=== PATIENT | female | born 1960 | race American Indian/Alaskan Native ===

== ENCOUNTER 2019-09-18 23:58 | Emergency (ER) | payer SELFPAY ==
[2019-09-19 00:59] LABS: Hematocrit 41.8 % (30.3-42.9); Hemoglobin 13.7 gm/dl (10.1-14.3); Mean Corpuscular HGB Conc 33 % (30-34); Mean Corpuscular Volume 92 fl (79-97); Platelet Count 280 K/mm3 (140-440); Red Blood Count 4.54 M/mm3 (3.65-5.03); Red Cell Distribution Width 14.5 % (13.2-15.2)
[2019-09-19 01:20] LABS: Albumin 4.2 g/dL (3.9-5); Calcium 9.2 mg/dL (8.4-10.2)
[2019-09-19 02:47] LABS: Bilirubin,Urine NEG (Negative); Blood,Urine NEG (Negative); Color,Urine Yellow (Yellow); Mucus,Urine FEW /HPF; Protein,Urine <15 mg/dL mg/dL (Negative); RBC,Urine < 1.0 /HPF (0.0-6.0); Urobilinogen,Urine < 2.0 mg/dL (<2.0)
[2019-09-19 04:41] LABS: Basophils % (Manual) 0 % (0.0-1.8); Platelet Estimate Consistent w Auto; Total Cells Counted 100
[2019-09-19] MEDS ORDERED: SODIUM CHLORIDE 0.9% 1000 ML 1,000 ML IV ONE (07:49)
[2019-09-19] MEDS ORDERED: ONDANSETRON 4 MG/2 ML INJ IV ONE (07:49)
[2019-09-19] MEDS ORDERED: MORPHINE 4 MG/1 ML INJ IV ONE (07:49)
--- NOTE | 2019-09-19 08:02 | Emergency Department Report ---
ED Abdominal Pain HPI - General Chief Complaint: Abdominal Pain Stated Complaint: RT LOW ABD PAIN Time Seen by Provider: 09/19/19 07:08 Source: patient Mode of arrival: Ambulatory Limitations: No Limitations - History of Present Illness Initial Comments: Patient is a 59-year-old female presents emergency room with complaints of right lower quadrant abdominal pain that began yesterday. She describes the pain as intermittent sharp stabbing pain. She has associated nausea. She denies any vomiting, diarrhea, fever, urinary symptoms. She states she had a normal bowel movement yesterday. She does not report any vaginal discharge or irritation. She has a past medical history of psoriatic arthritis, fibromyalgia. She denies any allergies to medications. She states her only abdominal surgical history is a hysterectomy. - Related Data Previous Rx's Medication Instructions Recorded Last Taken Type Docusate Sodium [Colace] 100 mg PO BID PRN #20 capsule 09/19/19 Unknown Rx Magnesium Citrate [Citrate of 296 ml PO ONCE #1 bottle 09/19/19 Unknown Rx Magnesia] Allergies Allergy/AdvReac Type Severity Reaction Status Date / Time No Known Allergies Allergy Unverified 09/19/19 00:18 ED Review of Systems ROS: Stated complaint: RT LOW ABD PAIN Other details as noted in HPI Comment: All other systems reviewed and negative ED Past Medical Hx - Past Medical History Previous Medical History?: No - Surgical History Past Surgical History?: Yes Additional Surgical History: Hysterectomy, lumpectomy, pneumothorax - Social History Smoking Status: Current Every Day Smoker Substance Use Type: Alcohol - Medications Home Medications: Home Medications Medication Instructions Recorded Confirmed Last Taken Type Docusate Sodium [Colace] 100 mg PO BID PRN #20 capsule 09/19/19 Unknown Rx Magnesium Citrate [Citrate of 296 ml PO ONCE #1 bottle 09/19/19 Unknown Rx Magnesia] ED Physical Exam - General Limitations: No Limitations General appearance: alert, in no apparent distress - Head Head exam: Present: atraumatic, normocephalic - Eye Eye exam: Present: normal appearance - ENT ENT exam: Present: mucous membranes moist - Respiratory Respiratory exam: Present: normal lung sounds bilaterally. Absent: respiratory distress, wheezes, rales, rhonchi, stridor, chest wall tenderness, accessory muscle use, decreased breath sounds, prolonged expiratory - Cardiovascular Cardiovascular Exam: Present: regular rate, normal rhythm, normal heart sounds. Absent: systolic murmur, diastolic murmur, rubs, gallop - GI/Abdominal GI/Abdominal exam: Present: soft, tenderness (RLQ), normal bowel sounds. Absent: distended, guarding, rebound, rigid - Neurological Exam Neurological exam: Present: alert, oriented X3 - Psychiatric Psychiatric exam: Present: normal affect, normal mood - Skin Skin exam: Present: warm, dry, intact ED Course Vital Signs 09/19/19 00:17 Temperature 98.3 F Pulse Rate 87 Respiratory 18 Rate Blood Pressure 139/90 O2 Sat by Pulse 98 Oximetry ED Medical Decision Making - Lab Data Result diagrams: 09/19/19 00:29 09/19/19 00:29 Lab Results 09/19/19 09/19/19 09/19/19 Range/Units 00: 00:29 Unknown WBC 8.2 (4.5-11.0) K/mm3 RBC 4.54 (3.65-5.03) M/mm3 Hgb 13.7 (10.1-14.3) gm/dl Hct 41.8 (30.3-42.9) % MCV 92 (79-97) fl MCH 30 (28-32) pg MCHC 33 (30-34) % RDW 14.5 (13.2-15.2) % Plt Count 280 (140-440) K/mm3 Add Manual Diff Complete Total Counted 100 Seg Neutrophils % [employer] Seg Neuts % (Manual) 31.0 L (40.0-70.0) % Band Neutrophils % 0 % Lymphocytes % (Manual) 65.0 H (13.4-35.0) % Reactive Lymphs % (Man) 0 % Monocytes % (Manual) 2.0 (0.0-7.3) % Eosinophils % (Manual) 2.0 (0.0-4.3) % Basophils % (Manual) 0 (0.0-1.8) % Metamyelocytes % 0 % Myelocytes % 0 % Promyelocytes % 0 % Blast Cells % 0 % Nucleated RBC % Not Reportable Seg Neutrophils # Man 2.5 (1.8-7.7) K/mm3 Band Neutrophils # 0.0 K/mm3 Lymphocytes # (Manual) 5.3 (1.2-5.4) K/mm3 Abs React Lymphs (Man) 0.0 K/mm3 Monocytes # (Manual) 0.2 (0.0-0.8) K/mm3 Eosinophils # (Manual) 0.2 (0.0-0.4) K/mm3 Basophils # (Manual) 0.0 (0.0-0.1) K/mm3 Metamyelocytes # 0.0 K/mm3 Myelocytes # 0.0 K/mm3 Promyelocytes # 0.0 K/mm3 Blast Cells # 0.0 K/mm3 WBC Morphology Not Reportable Hypersegmented Neuts Not Reportable Hyposegmented Neuts Not Reportable Hypogranular Neuts Not Reportable Smudge Cells Not Reportable Toxic Granulation Not Reportable Toxic Vacuolation Not Reportable Dohle Bodies Not Reportable Pelger-Huet Anomaly Not Reportable [place] Rods Not Reportable Platelet Estimate Consistent w auto Clumped Platelets Not Reportable Plt Clumps, EDTA Not Reportable Large Platelets Not Reportable Giant Platelets Not Reportable Platelet Satelliting Not Reportable Plt Morphology Comment Not Reportable RBC Morphology Not Reportable Dimorphic RBCs Not Reportable Polychromasia Not Reportable Hypochromasia Not Reportable Poikilocytosis Not Reportable Anisocytosis Not Reportable Microcytosis Not Reportable Macrocytosis Not Reportable Spherocytes Not Reportable Pappenheimer Bodies Not Reportable Sickle Cells Not Reportable Target Cells Not Reportable Tear Drop Cells Not Reportable Ovalocytes Not Reportable Helmet Cells Not Reportable Ruiz-Griswold Bodies Not Reportable [place] Rings Not Reportable [place] Cells Not Reportable Bite Cells Not Reportable Crenated Cell Not Reportable Elliptocytes Not Reportable Acanthocytes (Spur) Not Reportable Rouleaux Not Reportable Hemoglobin C Crystals Not Reportable Schistocytes Not Reportable Malaria parasites Not Reportable Daniel Bodies Not Reportable Hem Pathologist Commnt No Sodium 144 (137-145) mmol/L Potassium 4.3 (3.6-5.0) mmol/L Chloride 106.1 (98-107) mmol/L Carbon Dioxide 26 (22-30) mmol/L Anion Gap 16 mmol/L BUN 12 (7-17) mg/dL Creatinine 1.0 (0.6-1.2) mg/dL Estimated GFR 56 ml/min BUN/Creatinine Ratio 12 % Glucose 86 (65-100) mg/dL Calcium 9.2 (8.4-10.2) mg/dL Total Bilirubin 0.50 (0.1-1.2) mg/dL AST 14 (5-40) units/L ALT 12 (7-56) units/L Alkaline Phosphatase 77 (35-129) units/L Total Protein 7.1 (6.3-8.2) g/dL Albumin 4.2 (3.9-5) g/dL Albumin/Globulin Ratio 1.4 % Urine Color Yellow (Yellow) Urine Turbidity Slightly-cloudy (Clear) Urine pH 6.0 (5.0-7.0) Ur Specific [place] 1.018 (1.003-1.030) Urine Protein <15 mg/dl (Negative) mg/dL Urine Glucose (UA) Neg (Negative) mg/dL Urine Ketones Neg (Negative) mg/dL Urine Blood Neg (Negative) Urine Nitrite Neg (Negative) Urine Bilirubin Neg (Negative) Urine Urobilinogen < 2.0 (<2.0) mg/dL Ur Leukocyte Esterase Neg (Negative) Urine WBC (Auto) 6.0 (0.0-6.0) /HPF Urine RBC (Auto) < 1.0 (0.0-6.0) /HPF U Epithel Cells (Auto) 8.0 (0-13.0) /HPF Urine Mucus Few /HPF - Radiology Data Radiology results: report reviewed CT ABDOMEN AND PELVIS WITH CONTRAST HISTORY: RLQ abd pain. COMPARISON: None. TECHNIQUE: CT images of the abdomen and pelvis were obtained following administration of intravenous contrast. All CT scans at this location are performed using CT dose reduction for ALARA by means of automated exposure control. CONTRAST: 100 ml of intravenous contrast administered. FINDINGS: Lungs/bones: Mild emphysematous changes are present with otherwise clear lung bases. There are degenerative changes within the spine and pelvis with no acute osseous abnormality identified. Abdomen/pelvis: The liver is mildly enlarged with no mass identified. The gallbladder, spleen, pancreas, left adrenal gland, and proximal GI tract appear unremarkable. There are small simple bilateral renal cysts. There is a 2.3 cm right adrenal mass which is not adequately characterized with only contrast imaging. There is mild prominence of the CBD and the distal pancreatic duct with faint density seen near the ampulla (for example see image #53 of series #2). Urinary bladder is unremarkable. Uterus is mildly atrophic. No pelvic free fluid. No acute colonic abnormality. There is moderate proximal colonic stool burden especially in the cecum and there is stool in the distal ileum which suggests a mild obstructive (i.e. delayed transit) effect. The appendix is normal. IMPRESSION: 1. Findings suggestive of constipation in the right lower quadrant as detailed above. Normal appendix. 2. Mild prominence of the distal CBD and the proximal pancreatic duct with questionable faint density seen near the ampulla--see referenced image above. Correlate with bilirubin level and if needed consider follow-up MRCP versus ERCP. 3. Indeterminate right adrenal mass. Further evaluation could be performed with either MRI (in/opposed phase imaging) or adrenal protocol CT. Signer Name: Jovon Cabrera MD Signed: 09/19/2019 9:01 AM Workstation Name: [id number] Transcribed By: MAGI Dictated By: Jovon Cabrera MD Electronically Authenticated By: Jovon Cabrera MD Signed Date/Time: 09/19/19900 DD/ 4 TD/TT: - Medical Decision Making Patient is a 59-year-old female presents emergency room with complaints of right lower quadrant abdominal pain that began yesterday. She describes the pain as intermittent sharp stabbing pain. She has associated nausea. She denies any vomiting, diarrhea, fever, urinary symptoms. She states she had a normal bowel movement yesterday. She does not report any vaginal discharge or irritation. She has a past medical history of psoriatic arthritis, fibromyalgia. She denies any allergies to medications. She states her only abdominal surgical history is a hysterectomy. Vitals are stable. On exam patient has right lower quadrant tenderness palpation, no guarding, no rebound, no rigidity, normal bowel sounds, no peritoneal signs. Labs are normal. UA is normal. CT abd pelvis: 1. Findings suggestive of constipation in the right lower quadrant as detailed above. Normal appendix. 2. Mild prominence of the distal CBD and the proximal pancreatic duct with questionable faint density seen near the ampulla--see referenced image above. Correlate with bilirubin level and if needed consider follow-up MRCP versus ERCP. 3. Indeterminate right adrenal mass. Further evaluation could be performed with either MRI (in/opposed phase imaging) or adrenal protocol CT. patient's LFTs, alk phos, bilirubin are all within completely normal limits. Patient given normal saline, Zofran, morphine and symptoms improved and she was feeling better. Patient is able to tolerate p.o. intake. Discussed all results with patient. Will have patient follow-up with a primary care doctor and a GI doctor, patient was given her CT report. Patient given prescription for Colace and magnesium citrate. Advised patient Please take medication as prescribed. Increase your water intake over the next several days. Increase your fiber intake. Follow-up with a GI doctor. Follow-up with a primary care doctor. Please take your CT report with you. Return to emergency room for any new or worsening symptoms. - Differential Diagnosis Appendicitis, colitis, obstruction, UTI, mass, diverticulitis Critical care attestation.: If time is entered above; I have spent that time in minutes in the direct care of this critically ill patient, excluding procedure time. ED Disposition Clinical Impression: Nausea, Adrenal mass, Common bile duct dilatation Abdominal pain Qualifiers: Abdominal location: right lower quadrant Qualified Code(s): R10.31 - Right lower quadrant pain Constipation Qualifiers: Constipation type: unspecified constipation type Qualified Code(s): K59.00 - Constipation, unspecified Disposition: TO HOME OR SELFCARE Is pt being admited?: No Does the pt Need Aspirin: No Condition: Stable Instructions: Constipation (ED), High Fiber Diet (ED), Abdominal Pain (ED) Additional Instructions: Please take medication as prescribed. Increase your water intake over the next several days. Increase your fiber intake. Follow-up with a GI doctor. Follow- up with a primary care doctor. Please take your CT report with you. Return to emergency room for any new or worsening symptoms. Prescriptions: Magnesium Citrate [Citrate of Magnesia] 296 ml PO ONCE #1 bottle Docusate Sodium [Colace] 100 mg PO BID PRN #20 capsule PRN Reason: Constipation Referrals: PRIMARY CARE, [Primary Care Provider] - 2-3 Days [facility] [Provider Group] - 2-3 Days Time of Disposition: 09:34 Print Language: LITHUANIAN
--- NOTE | 2019-09-19 09:05 | Cat Scan Report ---
CT ABDOMEN AND PELVIS WITH CONTRAST HISTORY: RLQ abd pain. COMPARISON: None. TECHNIQUE: CT images of the abdomen and pelvis were obtained following administration of intravenous contrast. All CT scans at this location are performed using CT dose reduction for ALARA by means of automated exposure control. CONTRAST: 100 ml of intravenous contrast administered. FINDINGS: Lungs/bones: Mild emphysematous changes are present with otherwise clear lung bases. There are degen erative changes within the spine and pelvis with no acute osseous abnormality identified. Abdomen/pelvis: The liver is mildly enlarged with no mass identified. The gallbladder, spleen, pancr eas, left adrenal gland, and proximal GI tract appear unremarkable. There are small simple bilateral renal cysts. There is a 2.3 cm right adrenal mass which is not adequately characterized with only contrast imaging . There is mild prominence of the CBD and the distal pancreatic duct with faint density seen near the a mpulla (for example see image #53 of series #2). Urinary bladder is unremarkable. Uterus is mildly atrophic. No pelvic free fluid. No acute colonic ab normality. There is moderate proximal colonic stool burden especially in the cecum and there is stool in the distal ileum which suggests a mild obstructive (i.e. delayed transit) effect. The appendix is normal. IMPRESSION: 1. Findings suggestive of constipation in the right lower quadrant as detailed above. Normal appendix . 2. Mild prominence of the distal CBD and the proximal pancreatic duct with questionable faint density seen near the ampulla--see referenced image above. Correlate with bilirubin level and if needed cons ider follow-up MRCP versus ERCP. 3. Indeterminate right adrenal mass. Further evaluation could be performed with either MRI (in/oppose d phase imaging) or adrenal protocol CT. Signer Name: Jovon Cabrera MD Signed: 09/19/2019 9:01 AM Workstation Name: [id number]
[2019-09-19 09:49] VITALS: BP 167/91
== END 2019-09-19 11:00 | disposition home or self-care (01) ==
LOC: ED 23:58
DX: K59.00 Constipation, unspecified (principal); R10.31 Right lower quadrant pain; R11.0 Nausea; E27.9 Disorder of adrenal gland, unspecified; K83.8 Other specified diseases of biliary tract; F17.200 Nicotine dependence, unspecified, uncomplicated; Z90.710 Acquired absence of both cervix and uterus; Z98.890 Other specified postprocedural states; Z79.899 Other long term (current) drug therapy
CPT/HCPCS: 36415; 74177; 80053; 81001; 85007; 85025; 96374; 96375; 99284; J2270; J2405; J7030; Q9967